=== PATIENT | female | born 1990 | race Two or more races ===

== ENCOUNTER 2023-11-26 15:56 | Emergency (ER) | payer MEDICAID ==
[~2023-11-26] VITALS: Ht 175.3 cm; Wt 118.2 kg
[2023-11-26 16:01] VITALS: BP 132/74; PULSE 86; RESP 17; TEMP 98.3
[2023-11-26] MEDS ORDERED: APIX5TAB PO (16:05)
== END 2023-11-26 18:13 | disposition left against medical advice (07) ==
LOC: EMS 15:56
DX: M79.89 Other specified soft tissue disorders (principal); Z53.21 Procedure and treatment not carried out due to patient leaving prior to being seen by health care provider
CPT/HCPCS: 99281; Z7502